=== PATIENT | male | born 1970 | race Two or more races ===

== ENCOUNTER → 2023-04-16 | Outpatient (CLI) | payer OTHER | END | disposition home or self-care (01) | LOC: LAB 09:30 | PROVIDERS: ATTEND Urology | DX: N40.1 Benign prostatic hyperplasia with lower urinary tract symptoms (principal) | CPT/HCPCS: 84153 ==

== ENCOUNTER → 2023-04-20 | Outpatient (CLI) | payer OTHER ==
[2023-04-20 06:46] LABS: Urine Bacteria FEW /hpf (None Seen); Urine Blood Negative /uL (Negative); Urine Specific Gravity 1.033 (1.001-1.035); Urine WBC 1 /hpf (0 - 3)
== END | disposition home or self-care (01) ==
LOC: LAB 06:29
PROVIDERS: ATTEND Urology
DX: N39.0 Urinary tract infection, site not specified (principal)
CPT/HCPCS: 81001; 87086

== ENCOUNTER → 2024-02-15 | Outpatient (CLI) | payer OTHER ==
[2024-02-15 08:36] LABS: Urine Bacteria None Seen /hpf (None Seen)
[2024-02-15 09:19] LABS: Urine Blood TRACE /uL (Negative); Urine Clarity Clear (Clear); Urine Color Light-Yellow (Yellow); Urine Mucus FEW (None Seen); Urine Protein, UAD 2+ (Negative); Urine Specific Gravity 1.033 (1.001-1.035); Urine Sperm PRESENT /hpf (None Seen); Urine Urobilinogen Normal (Negative); Urine WBC 1 /hpf (0 - 3)
[2024-02-15 09:31] LABS: Alanine Aminotransferase 23 U/L (7-40); Albumin 4.1 g/dL (3.2-4.8); Alkaline Phosphatase 120 U/L (46-116); Anion Gap 8 (5-15); Aspartate Aminotransferase 23 U/L (13-40); BUN/Creatinine Ratio 16.1 (10.0-20.0); Bilirubin, Total 0.6 mg/dL (0.2-1.0); Blood Urea Nitrogen 14 mg/dL (9-23); Calcium 9.3 mg/dL (8.5-10.1); Carbon Dioxide 23 mmol/L (20-30); Chloride 103 mmol/L (98-107); Cholesterol 219 mg/dL (< 200); Glucose 326 mg/dL (74-106); HDL Cholesterol 56 mg/dL (40-59); LDL Cholesterol 148 mg/dL (< 100); Potassium 4.2 mmol/L (3.5-5.1); Sodium 134 mmol/L (136-145); Triglycerides 100 mg/dL (< 150)
[2024-02-16 20:06] LABS: Chlamydia Trachomatis, NAA Negative (Negative); Neisseria gonorrhoeae, NAA Negative (Negative)
== END | disposition home or self-care (01) ==
LOC: LAB 08:26
PROVIDERS: ATTEND Nurse Practitioner Family
DX: Z12.5 Encounter for screening for malignant neoplasm of prostate (principal); E11.65 Type 2 diabetes mellitus with hyperglycemia; Z12.11 Encounter for screening for malignant neoplasm of colon; Z11.8 Encounter for screening for other infectious and parasitic diseases
CPT/HCPCS: 36415; 80053; 80061; 81001; 83036; 84153; 87086

== ENCOUNTER → 2024-03-01 | Outpatient (CLI) | payer OTHER | END | disposition home or self-care (01) | LOC: LAB 10:50 | PROVIDERS: ATTEND Family Medicine | DX: Z12.11 Encounter for screening for malignant neoplasm of colon (principal) | CPT/HCPCS: 82270 ==

== ENCOUNTER → 2025-01-16 | Outpatient (CLI) | payer OTHER ==
[2025-01-16 12:47] LABS: Basophils # (auto) 0 10 ^3/uL (0-0.2); Basophils % (auto) 0.6 % (0.0-2.0); Eosinophils # (auto) 0.2 10 ^3/uL (0-0.8); Eosinophils % (auto) 2.5 % (0.0-7.0); Hematocrit 50.8 % (41.0-53.0); Hemoglobin 17.4 g/dL (13.5-17.5); Lymphocytes # (auto) 2.6 10 ^3/uL (0.4-5.4); Lymphocytes % (auto) 34.9 % (10.0-50.0); Mean Corpuscular Hemoglobin 29.8 pg (28.0-32.0); Mean Corpuscular Hgb Conc. 34.2 g/dL (32.0-36.0); Monocytes # (auto) 0.5 10 ^3/uL (0-1.3); Monocytes % (auto) 6.8 % (0.0-12.0); Neutrophils # (auto) 4.1 10 ^3/uL (1.6-8.6); Neutrophils % (auto) 55.2 % (37.0-80.0); Nucleated Red Blood Cells % 0.4 %; Platelet Count (auto) 207 10^3/uL (140-450); Red Blood Cells 5.84 10^6/uL (4.5-5.90); Red Cell Distribution Width 12.7 % (11.8-14.3); White Blood Cell 7.4 10^3/uL (4.4-10.8)
[2025-01-16 13:12] LABS: Urine Bacteria FEW /hpf (None Seen); Urine Blood Negative /uL (Negative); Urine Clarity Clear (Clear); Urine Color Light-Yellow (Yellow); Urine Protein, UAD 2+ (Negative); Urine Specific Gravity 1.034 (1.001-1.035); Urine Squamous Epithelial Cell FEW /hpf (<5); Urine Urobilinogen Normal (Negative); Urine WBC < 1 /HPF (0-3); Urine pH 5.5 (5.0-9.0)
[2025-01-16 13:27] LABS: Alanine Aminotransferase 28 U/L (7-40); Albumin 4.7 g/dL (3.2-4.8); Alkaline Phosphatase 91 U/L (46-116); Anion Gap 11 (5-15); Aspartate Aminotransferase 22 U/L (13-40); BUN/Creatinine Ratio 11.5 (10.0-20.0); Bilirubin, Total 1.1 mg/dL (0.2-1.0); Blood Urea Nitrogen 10 mg/dL (9-23); Calcium 10.3 mg/dL (8.7-10.4); Carbon Dioxide 24 mmol/L (20-31); Chloride 104 mmol/L (98-107); Cholesterol 139 mg/dL (< 200); LDL Cholesterol 56 mg/dL (< 100); Potassium 4.1 mmol/L (3.5-5.1); Sodium 139 mmol/L (136-145); Total Protein 7.7 g/dL (5.7-8.2); Triglycerides 107 mg/dL (< 150)
[2025-01-16 13:29] LABS: Glucose 180 mg/dL (74-106); HDL Cholesterol 61 mg/dL (40-59)
== END | disposition home or self-care (01) ==
LOC: LAB 12:17
PROVIDERS: ATTEND Family Medicine
DX: I25.10 Atherosclerotic heart disease of native coronary artery without angina pectoris (principal); E78.5 Hyperlipidemia, unspecified
CPT/HCPCS: 36415; 80053; 80061; 81001; 82043; 82306; 82570; 83036; 84443; 85025

== ENCOUNTER 2025-01-30 18:10 | Emergency (ER) | payer OTHER ==
[~2025-01-30] VITALS: Ht 172.7 cm; Wt 77.1 kg
--- NOTE | 2025-01-30 19:34 | DVH ---
EXAM: US TESTICULAR ULTRASOUND Clinical History: GROIN PX Comparison: None TECHNIQUE: Grayscale color-flow and focus duplex Doppler also examination of the contents of the scro chelsea was performed. Findings: Right testis measures 3.9 x 2.6 x 2.7 cm. Right epididymal head measures 1.5 cm. Small right hydrocel e. No varicocele. Left testis measures 3.4 x 2.2 x 2.4 cm. Left epididymal head measures 1.1 cm. Small left hydrocele. No varicocele. Homogeneous echotexture noted in both testes without evidence of intratesticular masses. Arterial and venous flow is documented to both testes. Small fat containing right inguinal hernia. Impression: 1. No evidence of testicular torsion or intratesticular masses. 2. No varicocele bilaterally. 3. Small bilateral hydroceles. 4. Small fat containing right inguinal hernia.
[2025-01-30] MEDS ORDERED: METH4PAK PO (22:04)
--- NOTE | 2025-01-30 22:04 | ED.PDOC ---
General HPI Comments C/O LEFT GROIN PAIN POST LIFTING HEAVY STUFF AT WORK TODAY Chief Complaint: Abdominal Pain Time Seen by MD: 18:23 Primary Care Provider: MARIA E Reviewed notes: Nurses Notes, Medications, Allergies Allergies: Coded Allergies: NO KNOWN ALLERGIES (Unverified , 01/30/25) Home Meds Active Scripts Methylprednisolone (Medrol Dosepak) 4 Mg Omar, 4 MG PO UD for 6 Days, #21 TAB UAD Prov:CARA ALLEN [employer] 01/30/25 Information Source: Patient Mode of Arrival: Ambulatory Constitutional: denies: chills, diaphoresis, fatigue, fever, malaise, sweats, weakness, others EENTM: denies: blurred vision, double vision, ear bleeding, ear discharge, ear drainage, ear pain, ear ringing, eye pain, eye redness, hearing loss, mouth pain, mouth swelling, nasal discharge, nose bleeding, nose congestion, nose pain, photophobia, tearing, throat pain, throat swelling, voice changes, others Respiratory: denies: cough, hemoptysis, orthopnea, SOB at rest, shortness of breath, SOB with excertion, stridor, wheezing, others Cardiovascular: denies: chest pain, dizzy spells, diaphoresis, Dyspnea on exertion, edema, irregular heart beat, left arm pain, lightheadedness, palpitations, PND, syncope, others Gastrointestinal: denies: abdomen distended, abdominal pain, blood streaked bowels, constipated, diarrhea, dysphagia, difficulty swallowing, hematemesis, melena, nausea, poor appetite, poor fluid intake, rectal bleeding, rectal pain, vomiting, others Genitourinary: reports: others (RIGHT GROIN PAIN); denies: burning, dysuria, flank pain, frequency, hematuria, incontinence, penile discharge, penile sore, pain, testicle pain, testicle swelling, urgency Neurological: denies: dizziness, fainting, headache, left sided numbness, left sided weakness, numbness, paresthesia, pre-existing deficit, right sided numbness, right sided weakness, seizure, speech problems, tingling, tremors, weakness, others Musculoskeletal: denies: back pain, gout, joint pain, joint swelling, muscle pain, muscle stiffness, neck pain, others Integumetry: denies: bruises, change in color, change in hair/nails, dryness, laceration, lesions, lumps, rash, wounds, others Allergic/Immunocompromised: denies: Difficulty Healing, Frequent Infections, Hives, Itching, others Hematologic/Lymphatic: denies: anemia, blood clots, easy bleeding, easy bruising, swollen glands, others Endocrine: denies: excessive hunger, excessive sweating, excessive thirst, excessive urination, flushing, intolerance to cold, intolerance to heat, unexplained weight gain, unexplained weight loss, others Psychiatric: denies: anxiety, bipolar disorder, depression, hopeless, panic disorder, schizophrenia, sleepless, suicidal, others Physical Exam General Appearance: No Apparent Distress, Normal HEENT: Pharynx Normal Neck: Full Range of Motion, Non-Tender Respiratory: Chest Non-Tender, Lungs Clear, No Accessory Muscle Use, No Respiratory Distress, Normal Breath Sounds Cardiovascular: No Edema, No JVD, No Murmur, No Gallop, Normal Peripheral Pulses, Regular Rate/Rhythm Breast Exam: Deferred Gastrointestinal: No Organomegaly, Non Tender, No Pulsatile Mass, Normal Bowel Sounds, Soft Genitalia: Testicle (NO NOTED HERNIAS PATIENT COUGHING AND BEARING DOWN NO NOTED BULGING OR POUCHING.), Deferred Pelvic: Deferred Rectal: Deferred Extremities: No calf tenderness, Normal capillary refill, Normal inspection, Normal range of motion, Non-tender, No pedal edema Musculoskeletal : Apperance: Normal Neurologic: Alert, powder and primer canning leader II-XII nml as Tested, No Motor Deficits, Normal Affect, Normal Mood, No Sensory Deficits Cerebellar Function: Normal Reflexes: Normal Skin: Dry, Normal Color, Warm Lymphatic: No Adenopathy Was a procedure done? Was a procedure done?: No Differential Diagnosis Kidney stone (Female): N/A Kidney stone (Male): Renal failure, Strain Penile/Scrotal: Prostatitis, Hydrocele, Testicular Torsion, N/A (HERNIA) Urinary Problem (Male): N/A Urinary Problem (Female): N/A X-Ray, Labs, Meds, VS Vital Signs Date Time Temp Pulse Resp B/P (MAP) Pulse Ox O2 Delivery O2 Flow Rate FiO2 01/30/25 22:28 97.5 82 20 131/85 (100) 96 97.5 01/30/25 22:28 82 20 96 Room Air 01/30/25 18:16 98.5 103 16 155/90 (111) 96 98.5 Current Medications Medications (Trade) Dose Ordered Sig/Nick Route Start Time Stop Time Status Last Admin Ketorolac Tromethamine (Toradol Injection) 60 mg ONCE ONCE IM 01/30/25 22:00 01/30/25 22:01 DC 01/30/25 22:21 X-Ray, Labs, Meds, VS Comment TESTICULAR ULTRASOUND NEGATIVE. PHYSICAL EXAM NEGATIVE FOR HERNIA. LIKELY GROIN STRAIN. PATIENT GIVEN TORADOL 60 MG IM REPORTS RELIEF IN PAIN REQUESTING DISCHARGE AT THIS TIME.. SCRIPT MEDROL DOSEPAK. TAKE MEDICATIONS PRESCRIBED SIDE EFFECTS DISCUSSED. FOLLOW UP WITH HIS PCP IN 1-2 DAYS FOR RE-EVALUATION. RETURN PRECAUTIONS GIVEN PATIENT INDICATED UNDERSTANDING AND AGREES WITH DISCHARGE PLAN OF CARE GIVEN 3 DAYS OFF WORK FOR REST ADVISED NOT TO BE LIFTING A HEAVY THINGS ADVISED TO USE A WEIGHT BELT Time of 1ST Reevaluation: 22:37 Reevaluation 1ST: Improved Patient Education/Counseling: Diagnosis, Treatment, Prognosis, Need For Follow Up Family Education/Counseling: No Family Present Departure 1 Departure Time of Disposition: 22:00 Impression: Primary Impression: Strain of muscle of right groin region Disposition: 01 HOME / SELF CARE / HOMELESS Condition: Stable e-Prescriptions Methylprednisolone (Medrol Dosepak) 4 Mg Omar 4 MG PO UD for 6 Days, #21 TAB UAD Prov: CARA ALLEN 01/30/25 Discharged With: Self Critical Care Note Critical Care Time?: No Stability Stability form required: CARA Boone Jan 30, 2025 22:04
[2025-01-30] MEDS: KETOROLAC TROMETH 60MG/2ML VIAL IM ONE (22:21)
[2025-01-30 22:28] VITALS: BP 131/85; PULSE 82; RESP 20; TEMP 97.5; O2SAT 96
== END 2025-01-30 22:30 | disposition home or self-care (01) ==
LOC: ER 18:10
DX: S39.011A Strain of muscle, fascia and tendon of abdomen, initial encounter (principal); Z79.899 Other long term (current) drug therapy; X50.9XXA Other and unspecified overexertion or strenuous movements or postures, initial encounter; Y93.89 Activity, other specified; Y92.89 Other specified places as the place of occurrence of the external cause; Y99.8 Other external cause status
CPT/HCPCS: 76870; 96372; 99285; J1885

== ENCOUNTER 2025-04-17 10:38 | Outpatient (CLI) | payer OTHER ==
[2025-04-17 11:06] LABS: Urine Bacteria None Seen /hpf (None Seen)
[2025-04-17 11:22] LABS: Basophils # (auto) 0 10 ^3/uL (0-0.2); Basophils % (auto) 0.6 % (0.0-2.0); Eosinophils # (auto) 0.3 10 ^3/uL (0-0.8); Eosinophils % (auto) 4.5 % (0.0-7.0); Hematocrit 46.9 % (41.0-53.0); Hemoglobin 16.5 g/dL (13.5-17.5); Lymphocytes # (auto) 2.2 10 ^3/uL (0.4-5.4); Lymphocytes % (auto) 34.2 % (10.0-50.0); Mean Corpuscular Hemoglobin 30.3 pg (28.0-32.0); Mean Corpuscular Hgb Conc. 35.2 g/dL (32.0-36.0); Mean Corpuscular Volume 85.8 fL (80.0-100.0); Monocytes # (auto) 0.4 10 ^3/uL (0-1.3); Monocytes % (auto) 6.2 % (0.0-12.0); Neutrophils # (auto) 3.5 10 ^3/uL (1.6-8.6); Neutrophils % (auto) 54.5 % (37.0-80.0); Nucleated Red Blood Cells % 0.3 %; Platelet Count (auto) 175 10^3/uL (140-450); Red Blood Cells 5.46 10^6/uL (4.5-5.90); Red Cell Distribution Width 12.4 % (11.8-14.3); White Blood Cell 6.4 10^3/uL (4.4-10.8)
[2025-04-17 11:23] LABS: Urine Blood TRACE /uL (Negative); Urine Clarity Clear (Clear); Urine Color Light-Yellow (Yellow); Urine Protein, UAD 2+ (Negative); Urine Specific Gravity 1.019 (1.001-1.035); Urine Squamous Epithelial Cell None Seen /hpf (<5); Urine Urobilinogen Normal (Negative); Urine WBC 1 /HPF (0-3)
[2025-04-17 11:34] LABS: Creatinine, Urine 90.86 mg/dL (30.0-125.0)
[2025-04-17 11:38] LABS: Alanine Aminotransferase 25 U/L (7-40); Albumin 4.1 g/dL (3.2-4.8); Alkaline Phosphatase 86 U/L (46-116); Anion Gap 7 (5-15); Aspartate Aminotransferase 23 U/L (<34); BUN/Creatinine Ratio 15.3 (10.0-20.0); Blood Urea Nitrogen 13 mg/dL (9-23); Calcium 9.6 mg/dL (8.7-10.4); Carbon Dioxide 28 mmol/L (20-31); Chloride 104 mmol/L (98-107); Glucose 224 mg/dL (74-106); LDL Cholesterol 122 mg/dL (< 100); Potassium 4.6 mmol/L (3.5-5.1); Sodium 139 mmol/L (136-145); Total Protein 6.7 g/dL (5.7-8.2); Triglycerides 144 mg/dL (< 150)
[2025-04-17 11:39] LABS: Bilirubin, Total 0.9 mg/dL (0.2-1.0); Cholesterol 186 mg/dL (< 200); HDL Cholesterol 55 mg/dL (40-59)
[2025-04-17 12:01] LABS: Uric Acid 6.6 mg/dL (3.7-9.2)
[2025-04-19 02:06] LABS: Chlamydia Trachomatis, NAA Negative (Negative); Neisseria gonorrhoeae, NAA Negative (Negative)
== END 2025-04-17 17:00 | disposition home or self-care (01) ==
LOC: LAB 10:38
PROVIDERS: ATTEND Family Medicine
DX: E11.40 Type 2 diabetes mellitus with diabetic neuropathy, unspecified (principal); Z11.3 Encounter for screening for infections with a predominantly sexual mode of transmission; Z13.89 Encounter for screening for other disorder; Z00.01 Encounter for general adult medical examination with abnormal findings
CPT/HCPCS: 36415; 80053; 80061; 81001; 82043; 82570; 83036; 84443; 84550; 85025

== ENCOUNTER 2025-09-04 09:22 | Outpatient (CLI) | payer OTHER ==
[~2025-09-04 09:22] MED LIST: DULA1INJ SC; GLIP10TA21 PO; LISI20TA56 PO; METF-372 PO; PRAV20TA3 PO
[2025-09-04 10:29] LABS: Hematocrit 48.2 % (41.0-53.0); Hemoglobin 16.7 g/dL (13.5-17.5); Mean Corpuscular Hemoglobin 30.0 pg (28.0-32.0); Mean Corpuscular Volume 86.4 fL (80.0-100.0); Nucleated Red Blood Cells % 0.2 %
[2025-09-04 10:35] LABS: Urine Protein, UAD 2+ (Negative)
[2025-09-04 10:51] LABS: Alanine Aminotransferase 32 U/L (7-40); Albumin 4.0 g/dL (3.2-4.8); BUN/Creatinine Ratio 8.6 (10.0-20.0); Calcium 8.9 mg/dL (8.7-10.4); Carbon Dioxide 26 mmol/L (20-31); Potassium 4.1 mmol/L (3.5-5.1); Sodium 139 mmol/L (136-145); Total Protein 7.0 g/dL (5.7-8.2); Triglycerides 130 mg/dL (< 150)
[2025-09-04 10:52] LABS: Alkaline Phosphatase 117 U/L (46-116); Bilirubin, Total 0.7 mg/dL (0.2-1.0); Blood Urea Nitrogen 8 mg/dL (9-23); Cholesterol 231 mg/dL (< 200); Glucose 330 mg/dL (74-106); HDL Cholesterol 65 mg/dL (40-59)
[2025-09-04 10:59] LABS: Anion Gap 8 (5-15); Chloride 105 mmol/L (98-107)
[2025-09-04 11:05] LABS: Uric Acid 4.9 mg/dL (3.7-9.2)
[2025-09-06 07:07] LABS: Chlamydia Trachomatis, NAA Negative (Negative); Neisseria gonorrhoeae, NAA Negative (Negative)
== END 2025-09-04 17:00 | disposition home or self-care (01) ==
LOC: LAB 09:22
PROVIDERS: ATTEND Family Medicine
DX: E11.21 Type 2 diabetes mellitus with diabetic nephropathy (principal); Z12.5 Encounter for screening for malignant neoplasm of prostate; Z11.3 Encounter for screening for infections with a predominantly sexual mode of transmission; Z13.89 Encounter for screening for other disorder; Z00.01 Encounter for general adult medical examination with abnormal findings; Z79.899 Other long term (current) drug therapy
CPT/HCPCS: 36415; 80053; 80061; 81003; 82043; 83036; 84153; 84443; 84550; 85025; 87086

== ENCOUNTER 2025-09-06 07:15 | Day surgery (SDC) | payer OTHER ==
[2025-09-04 10:26] LABS: Hematocrit 47.6 % (41.0-53.0); Hemoglobin 16.6 g/dL (13.5-17.5); Mean Corpuscular Hemoglobin 29.9 pg (28.0-32.0); Mean Corpuscular Volume 85.9 fL (80.0-100.0); Nucleated Red Blood Cells % 0.1 %
[2025-09-04 10:40] LABS: Urine Protein, UAD 2+ (Negative)
[2025-09-04 10:42] LABS: INR 0.98 (0.9-1.15); Partial Thromboplastin Time 26.3 SEC (24.5-34.5); Prothrombin Time 10.4 sec (9.3-11.8)
[2025-09-04 10:48] LABS: Alanine Aminotransferase 34 U/L (7-40); Albumin 4.0 g/dL (3.2-4.8); BUN/Creatinine Ratio 8.4 (10.0-20.0); Bilirubin, Total 0.7 mg/dL (0.2-1.0); Calcium 8.9 mg/dL (8.7-10.4); Carbon Dioxide 26 mmol/L (20-31); Potassium 4.0 mmol/L (3.5-5.1); Sodium 139 mmol/L (136-145); Total Protein 7.1 g/dL (5.7-8.2)
[2025-09-04 10:52] LABS: Alkaline Phosphatase 119 U/L (46-116); Blood Urea Nitrogen 8 mg/dL (9-23); Glucose 327 mg/dL (74-106)
[2025-09-04 10:57] LABS: Anion Gap 9 (5-15); Chloride 104 mmol/L (98-107)
[~2025-09-06] VITALS: Ht 172.7 cm; Wt 77.1 kg
[2025-09-06] MEDS ORDERED: PHENYLEPHRINE HCL 10 MG/ML VL IV ONE (07:16)
[2025-09-06] MEDS ORDERED: ROCURONIUM 10MG/ML 10ML VIAL IV ONE (07:16)
[2025-09-06] MEDS ORDERED: ceFAZolin 2 GM/D5W50ml 50 ML IV ONE (07:46)
[2025-09-06] MEDS ORDERED: ceFAZolin 1GM VL ONE (08:37)
[2025-09-06] MEDS ORDERED: fentaNYL CITRATE 100 MCG/2 ML VL ONE (08:42)
[2025-09-06] MEDS ORDERED: MIDAZOLAM HCL 2MG/2ML 2ml VIAL (1mg/ml) ONE (08:42)
[2025-09-06] MEDS ORDERED: PROPOFOL 10 MG/ML 20 ML IV ONE (08:42)
[2025-09-06] MEDS ORDERED: ONDANSETRON HCL 4 MG/2 ML VIAL ONE (08:43)
[2025-09-06] MEDS ORDERED: METOCLOPRAMIDE HCL 5MG/ml INJ 2ml VIAL ONE (08:43)
[2025-09-06] MEDS ORDERED: ONDANSETRON HCL 4 MG/2 ML VIAL IV PRN (08:45)
[2025-09-06] MEDS ORDERED: METOCLOPRAMIDE HCL 5MG/ml INJ 2ml VIAL IV PRN (08:45)
[2025-09-06] MEDS ORDERED: ACETAMINOPHEN IV 1000 MG/100ML (10MG/ML) IV ONE (08:45)
[2025-09-06] MEDS ORDERED: HYDROmorphone HCL 2 MG/ML VL/or syr IV PRN (08:45)
[2025-09-06] MEDS ORDERED: BUPIVACAINE 0.25% INJ 50ML VIAL ONE (08:54)
[2025-09-06] MEDS ORDERED: LIDOCAINE W/ EPINEPHRINE 1% 20ML VIAL ONE (09:04)
[2025-09-06] MEDS ORDERED: SUGAMMADEX 200mg/2ml Vial (100MG/ML) IV ONE (09:35)
[2025-09-06] MEDS: BUPIVACAINE 0.5% P/F INJ 10 ML VIAL ONE (09:39)
[2025-09-06] MEDS: LIDOCAINE W/ EPINEPHRINE 1% 20ML VIAL ONE (09:39)
[2025-09-06] MEDS ORDERED: ACE3T PO (09:46)
[2025-09-06 09:52] VITALS: PULSE 92; RESP 15; TEMP 97.9; O2SAT 97
--- NOTE | 2025-09-06 10:03 | DVHOP ---
DATE OF SURGERY: 09/06/2025 PREOPERATIVE DIAGNOSIS: Right inguinal hernia. POSTOPERATIVE DIAGNOSIS: Right inguinal hernia. SURGEON: Chai Holland MD OUTBOUND SUPERVISOR: Christian Bradley NP ANESTHESIA: General endotracheal. ANESTHESIOLOGIST: Jamaal Armas. PROCEDURE: Repair of right inguinal hernia. DESCRIPTION OF PROCEDURE: Under general endotracheal anesthesia, the patient's skin was prepped and draped and infiltrated with 0.25% Marcaine with 0.5% Xylocaine with epinephrine for local anesthesia. The patient's incision was made over the visible palpable bulge in the right groin. The right groin adipose tissue was then divided down on to the fibers of the external oblique aponeurosis. The external ring was bulging. It was opened sharply and the ilioinguinal nerve was identified, reflected laterally and protected. The hernia consisted of a direct herniation. The adipose tissue herniating through the internal ring was reduced and then the floor of the hernia was repaired utilizing nonabsorbable sutures through conjoined tendon and Poupart's ligament. The wound was irrigated. Irrigant was aspirated. Hemostasis was meticulously accomplished, found to be complete. The ilioinguinal nerve was returned back into its normal anatomical position. The testicle was returned into its normal anatomical position. The closure was accomplished utilizing Monocryl sutures, Dermabond glue, and Steri-Strips. The patient remained stable throughout the procedure and left the operating room following an accurate needle and sponge count. Family was thoroughly informed by phone. Chai Holland MD PF/BRIAN TID: [id number] RECEIPT: [id number]
[2025-09-06 11:00] VITALS: BP 166/91; PULSE 94; RESP 14; O2SAT 96
== END 2025-09-06 11:30 | disposition home or self-care (01) ==
LOC: SUR 07:15
PROVIDERS: ATTEND Surgery
DX: K40.90 Unilateral inguinal hernia, without obstruction or gangrene, not specified as recurrent (principal); E11.9 Type 2 diabetes mellitus without complications; F17.210 Nicotine dependence, cigarettes, uncomplicated; Z79.84 Long term (current) use of oral hypoglycemic drugs; Z79.899 Other long term (current) drug therapy; Z98.890 Other specified postprocedural states
CPT/HCPCS: 36415; 49505; 80053; 81001; 82962; 85025; 85610; 85730; 86850; 86900; 86901; J0690; J1100; J2250; J2371; J2405; J2704; J2765; J3010; J3490; 93458